=== PATIENT | female | born 1955 | race Caucasian/White ===

== ENCOUNTER 2019-10-10 07:52 | Outpatient (CLI) | payer OTHER | END 2019-10-10 23:59 | disposition home or self-care (01) | LOC: ROC 07:52 | PROVIDERS: ATTEND Radiology Radiation Oncology | DX: C78.01 Secondary malignant neoplasm of right lung (principal) | CPT/HCPCS: 99214; G0463 ==

== ENCOUNTER → 2019-10-16 | Outpatient (CLI) | payer OTHER ==
[~2019-10-16] MED LIST: GADOTERATE 7.5 MMOL/15 ML SYR ONE
== END | disposition home or self-care (01) ==
LOC: RAD 12:12
PROVIDERS: ATTEND Internal Medicine Hematology & Oncology
DX: C34.90 Malignant neoplasm of unspecified part of unspecified bronchus or lung (principal); I67.82 Cerebral ischemia
CPT/HCPCS: 70553; A9575